=== PATIENT | female | born 1985 | race Caucasian/White ===

== ENCOUNTER 2017-01-08 02:37 | Emergency (ER) | payer SELFPAY ==
[~2017-01-08] VITALS: Ht 139.7 cm; Wt 53.8 kg
[~2017-01-08 02:37] MED LIST: ACYCLOVIR800 MG PO; AMOXICILLIN500 MG PO; AMOXICILLIN875 MG OR; BACTRIM DS1 TAB PO; BLEPH-1010 % OD; CHANTIX STARTIN0.5 & OR; CHANTIX0.5 MG PO; CIPRO500 MG PO; CIPROFLOXACN500 MG PO; CLINDAMYCIN150 MG PO; CLINDAMYCIN300 M1 PO; CORTISPORIN OP3.5 GM OD; DOXYCYCL HYC100 MG PO; FLORASTOR250 M1 PO; GENTAMICIN0.31 OP; LEXAPRO10 MG OR; MEDDOSEPAK PO; MOTRIN800 MG PO; NAPROSYN500 MG PO; NO HOME MEDS; ONDANSETRON4 MG PO; PERCOCET1 TA2 PO; POLYTRIM OU; TYLENOL # 31 TA1 OR; TYLENOL # 31 TA1 PO; ULTRAM50 M1 PO; VICODIN1 TAB PO; ZOFRAN4 MG/TAB PO
[2017-01-08 02:41] VITALS: BP 124/94
[2017-01-08] MEDS ORDERED: RISPERDAL0.5 MG PO (02:46)
== END 2017-01-08 03:00 | disposition left against medical advice (07) | DRG 159 ==
LOC: ED 02:37
DX: K13.0 Diseases of lips (principal); Z91.19 Patient's noncompliance with other medical treatment and regimen

== ENCOUNTER 2017-03-02 19:11 | Emergency (ER) | payer SELFPAY ==
[~2017-03-02] VITALS: Ht 139.7 cm; Wt 55.4 kg
[~2017-03-02 19:11] MED LIST changes: +RISPERDAL0.5 MG PO
[2017-03-02 19:38] VITALS: BP 107/64
[2017-03-02] MEDS ORDERED: AMOXICILLIN500 MG PO (22:53)
[2017-03-02] MEDS ORDERED: IBUPROFEN600 MG PO (22:53)
== END 2017-03-02 23:15 | disposition home or self-care (01) | DRG 159 ==
LOC: ED 19:11
DX: K05.10 Chronic gingivitis, plaque induced (principal); F17.210 Nicotine dependence, cigarettes, uncomplicated

== ENCOUNTER 2018-08-25 18:57 | Emergency (ER) | payer SELFPAY ==
[~2018-08-25] VITALS: Ht 139.7 cm; Wt 65.0 kg
[~2018-08-25 18:57] MED LIST changes: +IBUPROFEN600 MG PO
[2018-08-25 19:29] VITALS: BP 118/63
== END 2018-08-25 19:29 | disposition home or self-care (01) | DRG 93 ==
LOC: ED 18:57 → LWOBS 19:29
DX: R20.2 Paresthesia of skin (principal); F17.200 Nicotine dependence, unspecified, uncomplicated